=== PATIENT | male | born 1985 | race Caucasian/White ===

== ENCOUNTER 2017-12-20 19:57 | Emergency (ER) | payer MEDICAID ==
[~2017-12-20] VITALS: Ht 170.2 cm; Wt 61.2 kg
[2017-12-20 20:11] VITALS: BP 112/58
--- NOTE | 2017-12-20 20:13 | NUR ---
PT AMBULATORY TO ER LOBBY W/ STEADY GAIT IN STABLE CONDITION.
--- NOTE | 2017-12-20 21:28 | NUR ---
32/M CAME IN W C/O INGROWN HAIR/BUMPS TO PUBIC AREA X 2 DAYS. SITE NOTED WITHOUT S/S OF INFECTION. DENIES PMH
--- NOTE | 2017-12-20 21:28 | NUR ---
PT AMBULATED TO BED 10.
--- NOTE | 2017-12-20 22:25 | NUR ---
Dr. Vee evaluating patient at bedside.
--- NOTE | 2017-12-20 22:28 | NUR ---
Patient discharged with v/s stable. Written and verbal after care instructions given and explained. Patient verbalized understanding. Ambulatory with steady gait. All questions addressed prior to discharge. Advised to follow up with PMD.
[2017-12-20 22:34] VITALS: BP 117/58
== END 2017-12-20 22:28 | disposition home or self-care (01) ==
LOC: MED 19:57
DX: Z00.00 Encounter for general adult medical examination without abnormal findings (principal)
CPT/HCPCS: 99281

== ENCOUNTER 2018-01-23 12:08 | Emergency (ER) | payer MEDICAID ==
[~2018-01-23] VITALS: Ht 170.2 cm; Wt 59.6 kg
[2018-01-23 12:13] VITALS: BP 119/80
[2018-01-23 12:35] VITALS: BP 119/80
== END 2018-01-23 12:35 | disposition home or self-care (01) ==
LOC: MED 12:08
DX: S16.1XXA Strain of muscle, fascia and tendon at neck level, initial encounter (principal); S39.012A Strain of muscle, fascia and tendon of lower back, initial encounter; J45.909 Unspecified asthma, uncomplicated; V89.2XXA Person injured in unspecified motor-vehicle accident, traffic, initial encounter; Y93.89 Activity, other specified; Y92.411 Interstate highway as the place of occurrence of the external cause; Y99.8 Other external cause status
CPT/HCPCS: 99282